=== PATIENT | female | born 1955 | race Caucasian/White ===

== ENCOUNTER 2019-10-14 06:10 | Day surgery (SDC) | payer MEDICARE, OTHER ==
[2019-10-14] MEDS ORDERED: Lactated Ringers 1,000 ML IV SCH (06:30)
[2019-10-14] MEDS ORDERED: DIPRIVAN 200 MG/20 ML IV ONE ×2 (07:58→08:06)
[2019-10-14 09:48] VITALS: O2SAT 97
[2019-10-14 09:54] VITALS: BP 135/98; PULSE 61
--- NOTE | 2019-10-14 12:53 | OP ---
SURGERY DATE/TIME: 10/14/2019 0757 PREOPERATIVE DIAGNOSIS: Rectal bleeding. POSTOPERATIVE DIAGNOSIS: Normal colon. PROCEDURE: Colonoscopy. SURGEON: Dr. Whatley. ANESTHESIA: MAC. Medications given by anesthesia department. HISTORY: The patient is a 63 year-old white female presenting now for episodes of rectal bleeding. She reports she had no bleeding with the prep. She desired to have colon examined. The patient was appraised of the risks of the procedure including the risk of perforation, phlebitis, untoward reaction to medication, bleeding and missed lesions. The patient verbalized understanding and desired to have the procedure performed. DESCRIPTION OF PROCEDURE: The patient was given the medications by the anesthesia department. She had continuous pulse oximetry, ECG monitoring, intermittent blood pressure monitoring and tidal CO2 monitoring during the examination. She was placed in the left lateral decubitus position. A digital rectal examination was performed and revealed normal anal sphincter tone and no masses. The flexible Olympus pediatric colonoscope was used to intubate the rectum. A view of the colon was developed sequentially to the cecum. Upon insertion and withdrawal including retroflex view in the rectum, no mucosal lesions were encountered. The scope was removed from the patient who tolerated the procedure well and was sent back to OP recovery in good condition. The prep was noted to be fair to good.
== END 2019-10-14 09:20 | disposition home or self-care (01) ==
LOC: SDC 06:10
PROVIDERS: ATTEND Family Medicine
DX: K62.5 Hemorrhage of anus and rectum (principal); Z79.899 Other long term (current) drug therapy
CPT/HCPCS: J2704